=== PATIENT | female | born 1950 | race Caucasian/White ===

== ENCOUNTER 2019-09-14 14:28 | Inpatient (IN) | payer OTHER ==
[2019-09-14] VITALS (12 sets, daily range): BP systolic 95–122; BP diastolic 28–71
[~2019-09-14] VITALS: Ht 157.5 cm; Wt 100.6 kg
[2019-09-14 14:55] LABS: ABSOLUTE NEUTROPHILS 5.7 thou/uL (1.4-8.2); BASOPHILS 0.6 % (0.0-2.0); EOSINOPHILS 3.1 % (0.0-3.0); HEMATOCRIT 48.9 % (37.0-47.0); HEMOGLOBIN 16.1 gm/dL (12.0-15.0); LYMPHOCYTES 19.7 % (24.0-44.0); MCH 31.2 pg (26.0-34.0); MCHC 32.9 g/dL (28.0-37.0); MONOCYTES 7.3 % (1.0-8.0); PLATELET COUNT 237 thou/uL (150-400); POLYS 69.3 % (36.0-66.0); RBC 5.15 mil/uL (4.20-5.00); RDW 13.8 % (10.5-14.5); WBC 8.2 thou/uL (4.0-11.0)
[2019-09-14 14:56] LABS: ANION GAP 9 mmol/L (7-16); BUN 37 mg/dL (7-18); CALCIUM 10.5 mg/dL (8.5-10.1); CHLORIDE 99 mmol/L (98-107); CO2 25 mmol/L (21-32); CREATININE 1.7 mg/dL (0.6-1.0); GLUCOSE 236 mg/dL (74-106); POTASSIUM 4.6 mmol/L (3.5-5.1); SODIUM 133 mmol/L (136-145)
[2019-09-14 15:06] LABS: LIPASE 63 U/L (73-393); SGOT 46 U/L (15-37); SGPT 40 U/L (30-65); TOTAL BILIRUBIN 0.4 mg/dL (<0.1-1.0); TOTAL PROTEIN 7.4 g/dL (6.4-8.2); TROPONIN-I <0.06 ng/mL (<0.06)
[2019-09-14 18:31] LABS: URINE BILIRUBIN 1+ (Negative); URINE BLOOD NEGATIVE (Negative); URINE CLARITY CLEAR; URINE COLOR YELLOW; URINE GLUCOSE-RANDOM* NEGATIVE (Negative); URINE KETONES TRACE (Negative); URINE LEUKOCYTES-REFLEX NEGATIVE (Negative); URINE NITRITE-REFLEX NEGATIVE (Negative); URINE PROTEIN (DIPSTICK) TRACE (Negative)
[2019-09-14 18:33] LABS: ICTOTEST (BILI CONFIRMATORY) Negative (Negative)
--- NOTE | 2019-09-14 19:05 | NUR ---
UPDATED SISTER IN [place] SHE STATED SHE WOULD CALL SAM PT'[facility] AND UPDATE HIM. SISTER DENIED NEEDS OR QUESTIONS AFTER THIS RN EXPLAINED SITUATION ABOUT PT TO HER.
--- NOTE | 2019-09-14 20:47 | NUR ---
2015: Pt admitted to ICU room 247 for syncope, hypotension, bradycardia. Monitor sinus rhythm, pt on dopamine gtt at 10 mcg/kg/min, MAP 50's, SBP > 90. Pt somewhat difficult to arouse, need to call name and touch shoulder to wake her up. Follows simple commands, pupils 4 NIHARIKA, sluggish. Walllet with ayala and credit cards placed in sealed patient valuables envelope and sent to security vault. Glasses, cell phone, purse, and cane left at bedside. Pt O2 sat on room air 88-89%, placed on 2 L nasal canula.
[2019-09-14] MEDS ORDERED: OXYCODONE HCL10 MG PO (22:08)
[2019-09-14] MEDS ORDERED: PERCOCET 10-321 EAC1 PO (22:11)
[2019-09-14] MEDS ORDERED: GABAPENTIN600 M1 PO (22:11)
[2019-09-14] MEDS ORDERED: LEVO-T25 MCG PO (22:13)
[2019-09-14] MEDS ORDERED: WELLBUTRIN 75 M75 M1 PO (22:15)
[2019-09-14] MEDS ORDERED: OXYBUTYNIN 5 MG5 M2 PO (22:20)
[2019-09-14] MEDS ORDERED: REQUIP5 MG PO (22:22)
[2019-09-14] MEDS ORDERED: FLEXERIL PO (22:25)
[2019-09-14] MEDS ORDERED: VICTOZA0.6 MG/0.1 SUBQ (22:29)
[2019-09-14] MEDS ORDERED: LANTUS SUBQ (22:30)
[2019-09-14] MEDS ORDERED: CLONAZEPAM 0.50.5 M1 PO (22:31)
[2019-09-14] MEDS ORDERED: DESYREL150 MG PO (22:35)
[2019-09-14] MEDS ORDERED: CYMBALTA20 MG PO (22:37)
[2019-09-14] MEDS ORDERED: CALCIUM500 MG PO (22:42)
[2019-09-15] VITALS (40 sets, daily range): BP systolic 63–135; BP diastolic 24–87
--- NOTE | 2019-09-15 03:48 | NUR ---
Jolly cath inserted for urinary retention and accurate I&O at 0315. Mild difficulty with insertion due to pt anatomy.
[2019-09-15 05:52] LABS: ANION GAP 11 mmol/L (7-16); BUN 45 mg/dL (7-18); CHLORIDE 102 mmol/L (98-107); CO2 22 mmol/L (21-32); CREATININE 1.9 mg/dL (0.6-1.0); GLUCOSE 161 mg/dL (74-106); POTASSIUM 4.3 mmol/L (3.5-5.1); SODIUM 135 mmol/L (136-145)
[2019-09-15 06:01] LABS: MAGNESIUM 1.7 mg/dL (1.8-2.4); TROPONIN-I <0.06 ng/mL (<0.06)
[2019-09-15 06:04] LABS: HEMATOCRIT 47.7 % (37.0-47.0); MCH 30.6 pg (26.0-34.0); MCHC 31.5 g/dL (28.0-37.0); MCV 97.2 fL (80.0-100.0); RBC 4.9 mil/uL (4.20-5.00); RDW 13.7 % (10.5-14.5); WBC 12.1 thou/uL (4.0-11.0)
--- NOTE | 2019-09-15 09:18 | 2DMMODE ---
[facility] [address] [place] [address] 2 D/M-MODE ECHOCARDIOGRAM Name: ELDER PABON [facility] Room #: 247-P ADM IN M.R.#: [id number] Admission: 09/14/19 Attend Phys: Chris Dumont MD Discharge: Date of : 48 Report #: [id number] THIS REPORT FOR: cc: FAM - No family physician/PCP FAM - No family physician/PCP Ricky Lubin MD ~ APPROVED REPORT Study performed: 09/15/2019 08:15:00 EXAM: Comprehensive 2D, Doppler, and color-flow Echocardiogram Patient Location: ICU Room #: 247 Status: routine BSA: 1.91 HR: 93 bpm BP: 100/37 mmHg Rhythm: NSR Other Information Study Quality: Adequate Indications Syncope, hypotension. Hx: HTN. 2D Dimensions RVDd: 35.89 mm IVSd: 12.28 (7-11mm) LVOT Diam: 20.27 (18-24mm) LVDd: 42.44 mm PWd: 12.00 (7-11mm) LVDs: 21.04 (25-40mm) Aortic Root: 29.72 mm Volumes Left Atrial Volume (Systole) Single Plane 4CH: 31.17 mL Single Plane 2CH: 32.35 mL LA ESV Index: 18.00 mL/m2 Aortic Valve AoV Peak Arsh.: 1.95 m/s AO Peak Gr.: 15.18 mmHg LVOT Max P.45 mmHg LVOT Max V: 1.45 m/s IGNACIO Vmax: 2.41 cm2 [facility] [address] [place] [address] 2 D/M-MODE ECHOCARDIOGRAM Name: ELDER PABON [facility] Room #: 247-P ADM IN M.R.#: [id number] Admission: 09/14/19 Attend Phys: Chris Dumont MD Discharge: Date of : 48 Report #: [id number] Mitral Valve E/A Ratio: 0.8 MV Decel. Time: 262.65 ms MV E Max Arsh.: 0.89 m/s MV A Arsh.: 1.18 m/s MV PHT: 76.17 ms IVRT: 62.28 ms Pulmonary Vein P Vein S: 0.42 m/s P Vein A: 0.33 m/s P Vein D: 0.45 m/s P Vein A Dur.: 79.6 msec P Vein S/D Ratio: 0.93 Tricuspid Valve TR Peak Arsh.: 2.24 m/s RAP Estimate: 5.00 mmHg TR Peak Gr.: 20.10 mmHg PA Pressure: 25.00 mmHg Left Ventricle The left ventricle is normal size. There is normal LV segmental wall motion. Mild concentric left ventricular hypertrophy. Left ventricular systolic function is hyperdynamic. LVEF is 65-70%. Mild diastolic dysfunction is present (impaired relaxation pattern). Right Ventricle The right ventricle is normal size. The right ventricular systolic function is normal. Atria The left atrium size is normal. The right atrium size is normal. Aortic Valve The Aortic valve is mildly sclerotic. No aortic regurgitation is present. There is no aortic valvular stenosis. Mitral Valve The mitral valve is normal in structure. Moderate mitral annular calcification. There is no mitral valve regurgitation noted. No evidence of mitral valve stenosis. Tricuspid Valve The tricuspid valve is normal in structure. Trace tricuspid regurgitation. Estimated PAP is 25mmHg. [facility] [address] [place] [address] 2 D/M-MODE ECHOCARDIOGRAM Name: PEPPERELDER SANDOVAL Room #: 247-P [facility] IN M.R.#: [id number] Admission: 09/14/19 Attend Phys: Chris Dumont MD Discharge: Date of : 48 Report #: [id number] Pulmonic Valve Pulmonic valve is not well visualized. Great Vessels The aortic root is normal in size. Ascending aorta is not well visualized. IVC is normal in size and collapses >50% with inspiration. Pericardium There is no pericardial effusion. <Conclusion> The left ventricle is normal size. LVEF is 65-70%. The Aortic valve is mildly sclerotic. The mitral valve is normal in structure. Moderate mitral annular calcification. The tricuspid valve is normal in structure. Trace tricuspid regurgitation. Estimated PAP is 25mmHg. Pulmonic valve is not well visualized. There is no pericardial effusion. <ELECTRONICALLY SIGNED> By: Ricky Lubin MD 09/15/19916 6 6 Ricky Lubin MD /INF
--- NOTE | 2019-09-15 11:43 | NUR ---
DROWSY BUT EASILY AROUSABLE. HYPOTENSIVE ON DOPAMINE AND STARTED ON LEVO FOR BP SUPPORT. TOLERATED DIET W/O NAUSEA BUT C/O ABDOMINAL TENDERNESS. WILL CONTINUE WITH POC AND TITRATE GTTS TOLERATED.
--- NOTE | 2019-09-15 11:46 | NUR ---
chart review, visited with pt at beside. intro to cm, dcp, and transition of care ie: hh and skilled rehab. pt is a & o x person, place and time. she was here visited her on another floor when she had syncope episode. colin reported " live in house with , 3 steps to enter home. 20 + steps to basement to do laundry, have stair lift or i would not be able to do that. independent. have cane and walker with seat. manage own medication. stand to shower. no home oxygen. drive vehicle. pcp dr vandana nunez with [facility]. no hh and rehab was in [place]. no other support, maybe neighbor few doors down if needed"/colin. education on hh and skilled rehab " ok"/colin. will cont following as needed for dc needs.
--- NOTE | 2019-09-15 20:58 | NUR ---
VASCULAR ACCESS CONSULTED FOR PICC LINE DISCUSSED PICC VS CENTRAL LINE WITH PT, PT UNABLE TO LAY FLAT FOR INSERTION. ALSO DISCUSSED BENEFITS AND RISKS OF PICC LINE, PT VERBALIZED UNDERSTANDING. PT'S LABS,MEDSS,HISTORY, ORDER AND CONSENT VERIFIED. MITESH SOLORIO IS WIDELY PATENT WITH USG. 5FR TL POWER PICC TRIMMED TO 43CM INSERTED TO 1CM EXTERNAL. STAT CXR ORDERED . PT TOLERATED WELL
--- NOTE | 2019-09-15 21:27 | NUR ---
CXR INCONCLUSIVE SO PICC WITHDRAWN 2 CM FOR TOTAL OF 3 CM EXTERNAL. STAT CXR ORDERED.
--- NOTE | 2019-09-15 21:55 | NUR ---
cxr confirmed placement, PICC RELEASED FOR IMMEDIATE USE PER PROTCOL TO KAYLAN GALICIA
[2019-09-16] VITALS (28 sets, daily range): BP systolic 107–171; BP diastolic 41–98
[2019-09-16 03:56] LABS: CALCIUM 6.6 mg/dL (8.5-10.1); CREATININE 1.2 mg/dL (0.6-1.0); POTASSIUM 3.3 mmol/L (3.5-5.1)
--- NOTE | 2019-09-16 08:00 | NUR ---
Assumed care at 0700. PT appeared anxious and stated she was worried about her and her cats. Her is admitted to . Nurse obtained his room phone number however the phone in the PT's room had no dial tone. Maintenance was contacted and a new phone don was placed. PT was able to get a hold of her who stated he would be discharged today and able to take care of their cats. High fall risk precautions in place. [facility]
--- NOTE | 2019-09-16 09:09 | EKG ---
[facility] [place] [address] ELECTROCARDIOGRAM REPORT Name: ELDER PABON Room #: [facility]- ADM IN M.R.#: [id number] Admission: 09/14/19 Attend Phys: Chris Dumont MD Discharge: Date of : 48 Report #: [id number] THIS REPORT FOR: cc: POOJA - No family physician/PCP POOJA - No family physician/PCP Jonathan Barillas MD [facility] THIS REPORT FOR: //name// 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 : 1950 Requested By: Good Aguirre Order Number: [id number] MD: Jonathan Barillas Measurements Intervals [place] Rate: 61 P: 46 CA: 147 QRS: -59 QRSD: 103 T: 22 QT: 416 QTc: 419 Interpretive Statements Sinus rhythm Leftward axis Poor R wave progression No previous ECG available for comparison Electronically Signed On 09-16-2019 9:08:48 BELL STAFF by Jonathan Barillas [email or web address] <ELECTRONICALLY SIGNED> By: Jonathan Barillas MD, [facility] 09/16/19 0908 1445 1445 Jonathan Barillas MD, [facility] /EPI
--- NOTE | 2019-09-16 09:19 | EKG ---
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: [facility] : 1950 Requested By: Good Aguirre Order Number: [id number] MD: Jonathan Bairllas Measurements Intervals [place] Rate: 54 P: 68 KS: 156 QRS: 6 QRSD: 114 T: 31 QT: 481 QTc: 456 Interpretive Statements Sinus rhythm Probable anteroseptal infarct, old No previous ECG available for comparison Electronically Signed On 09-16-2019 9:17:59 MANAGER CHINESE by Jonathan Barillas [email or web address] <ELECTRONICALLY SIGNED> By: Jonathan Barillas MD, FAC 09/16/19 0917 1707 170 Jonathan Barillas MD, [facility] /EPI
--- NOTE | 2019-09-16 09:28 | EKG ---
[facility] [place] [address] ELECTROCARDIOGRAM REPORT Name: ELDER PABON Room #: 247- ADM IN M.R.#: [id number] Admission: 09/14/19 Attend Phys: Chris Dumont MD Discharge: Date of : 48 Report #: [id number] THIS REPORT FOR: cc: POOJA - Radha family physician/PCP POOJA - Radha family physician/PCP Jonathan Barillas MD [facility] THIS REPORT FOR: //name// [facility] Test Date: 2019-09-15 Test Time: 07:21:47 Pat Name: ELDER PABON Department: Room: [facility] Gender: F 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 : 1950 Requested By: Chris Dumont Order Number: [id number] MD: Jonathan Barillas Measurements Intervals [place] Rate: 97 P: 68 AR: 117 QRS: 126 QRSD: 101 T: 18 QT: 313 QTc: 398 Interpretive Statements Sinus rhythm Borderline short AR interval Low voltage, precordial leads Poor R wave progression No previous ECG available for comparison Electronically Signed On 09-16-2019 9:27:41 ADJUTANT GENERAL by Jonathan Barillas [email or web address] <ELECTRONICALLY SIGNED> By: Jonathan Barillas MD, [facility] 09/16/19 0927 0 0 Jonathan Barillas MD, [facility] /EPI
--- NOTE | 2019-09-16 09:30 | NUR ---
PT requested to use the toilet. She ambulated with minimum ast. Fall precautions in place. Pt had a small BM however there was bright red blood noted when performing pericare. Nurse also noted scant amount of bright red blood in the toilet bowl. Nurse assessed the outside of the rectum and could not identify any hemmorhoids. Dr. Dumont was on unit and notified. He placed an order to consult GI. Their answering service was notified. Nurse will continue to monitor.
[2019-09-16 10:58] LABS: CREATININE 1.4 mg/dL (0.6-1.0)
[2019-09-16 10:59] LABS: CALCIUM 8.9 mg/dL (8.5-10.1); POTASSIUM 4.5 mmol/L (3.5-5.1)
[2019-09-16 11:27] LABS: HEMATOCRIT 36.6 % (37.0-47.0); MCH 31.3 pg (26.0-34.0); MCHC 32.9 g/dL (28.0-37.0); MCV 95.2 fL (80.0-100.0); RBC 3.85 mil/uL (4.20-5.00); RDW 14.2 % (10.5-14.5)
--- NOTE | 2019-09-16 16:31 | EKG ---
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
[2019-09-17] VITALS (10 sets, daily range): BP systolic 87–171; BP diastolic 48–86
--- NOTE | 2019-09-17 06:44 | NUR ---
Pt up to BSC x1 during the night. No stool. Pt c/o of migraine early in shift. Nurse practioner notified and pt's home medication for migraines started. Pt also c/o of abdominal pain. Abdomen remains soft, tender to palpation. Pt given Toradol IV earlier in shift for abdominal pain without much relief. No nausea at this time.
--- NOTE | 2019-09-17 15:43 | NUR ---
PT SITTING IN CHAIR MAJORITY OF THE DAY. HAS HAD 3 BOWEL MOVEMENTS WITHOUT S/S OF BLEEDING. CONTINUES TO COMPLAIN OF ABDOMINAL PAIN. ABDOMEN IS SOFT/SYMETRICAL AND NON TENDER TO PALPATION. PT HAS HAD FOOD AVOIDANCE. GI UPDATED. CC/TELE ORDERS. PT EDUCATED THROUGHT DAY. PROGRESSING TOWARDS PLAN OF CARE, EVIDANCE OF MULTIPLE BOWEL MOVEMENTS. WILL CONTINUE TO MONITOR.
[2019-09-18] VITALS (7 sets, daily range): BP systolic 133–151; BP diastolic 60–556
[2019-09-18] MEDS ORDERED: COZAAR 25 MG TA25 M2 PO (02:52)
[2019-09-18 03:12] LABS: ABSOLUTE NEUTROPHILS 4.4 thou/uL (1.4-8.2); BASOPHILS 0.1 % (0.0-2.0); EOSINOPHILS 3.2 % (0.0-3.0); HEMATOCRIT 33.5 % (37.0-47.0); LYMPHOCYTES 13.2 % (24.0-44.0); MCH 31.1 pg (26.0-34.0); MCHC 32.9 g/dL (28.0-37.0); MCV 94.3 fL (80.0-100.0); MONOCYTES 11.5 % (1.0-8.0); PLATELET COUNT 134 thou/uL (150-400); RBC 3.56 mil/uL (4.20-5.00); RDW 14.2 % (10.5-14.5); WBC 6.1 thou/uL (4.0-11.0)
[2019-09-18 03:19] LABS: ALBUMIN 2.1 g/dL (3.4-5.0); CALCIUM 9.5 mg/dL (8.5-10.1); MAGNESIUM 1.2 mg/dL (1.8-2.4); POTASSIUM 4.4 mmol/L (3.5-5.1); TOTAL BILIRUBIN 0.5 mg/dL (<0.1-1.0); TOTAL PROTEIN 5.2 g/dL (6.4-8.2)
--- NOTE | 2019-09-18 06:40 | NUR ---
AT APPROX 0228 PT WENT INTO AFIB FOR 10 MIN. GOT EKG, VITALS, LABS, AND BS. PT WENT BACK TO SR IN THE 90'S. LAB SHOWED MAG 1.2, REPLACED WITH 4 MG IV. WILL CONTINUE TO MONITOR.
--- NOTE | 2019-09-18 13:15 | EKG ---
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 : 1950 Requested By: Michelle Blanco Order Number: [id number] MD: Jeff Engel Measurements Intervals [place] Rate: 166 P: [place]: QRS: 96 QRSD: 87 T: -68 QT: 243 QTc: 404 Interpretive Statements Atrial fibrillation with rapid V-rate Ventricular premature complex Right axis deviation Low voltage, extremity leads Anteroseptal infarct, old Repolarization abnormality, prob rate related Compared to ECG 09/16/2019 07:21:29 Ventricular premature complex(es) now present Right-axis deviation now present Early repolarization now present Sinus rhythm no longer present Myocardial infarct finding still present Electronically Signed On 09-18-2019 13:14:26 BLENDER/BRAZE APPLICATOR by Jeff Engel [email or web address] <ELECTRONICALLY SIGNED> By: Jeff Engel MD 09/18/19 1314 5 5 Jeff Engel MD /EPI
--- NOTE | 2019-09-18 15:38 | NUR ---
Assumed care approx. 0700 this AM. Pt ALOx4. Pt titrated off of 2LNC this morning. Pt O2 sats 95-100%. No runs of afib noted thus far. Pt SR on the monitor. Pt complained earlier in the shift of anxiousness and that she felt like a panic attack was coming. Dr. Dumont notified that the patients home meds for anxiety hadn't been restarted and that she was requesting to recieve them. Pt recieved dose of klonopin and has been more calm. Dr. Friend called per request of Dr. Dumont due to patient's run afib overnight. Dr. Friend added aspirin and PO metoprolol to patient's care then said cardiology will see him tomorrow. Pt still complaining of stomach pain when eating. Jolly discontinued per orders. Magnesium replaced per electrolyte protocol. Will continue to monitor. Pt slightly and slowly progressing toward plan of care goals.
[2019-09-19 04:29] VITALS: BP 125/62
--- NOTE | 2019-09-19 06:05 | NUR ---
PT HAS BEEN NPO SINCE 2400 SHE IS SCHEDULED FOR A EGD TODAY. PT UP TO BATHROOM WITH STANDBY ASSIST. PT STATES HER BM'S ARE BOTH LOOSE AND SOFT. OVERNIGHT NO ISSUES WITH PAFIB. PT SLEPT MOST OF NIGHT AFTER RESTARTING HER ANXIETY MEDICATIONS. MAGNESIUM REDRAW AT 2230 RESULTED IN 1.2. CALLED [employer] AND INSTRUCTED TO FOLLOW PROTOCOL AND PO MAG GIVEN. WILL CONTINUE TO MONITOR.
[2019-09-19 06:48] LABS: HEMATOCRIT 30.1 % (37.0-47.0); HEMOGLOBIN 10.1 gm/dL (12.0-15.0); MCH 31.7 pg (26.0-34.0); MCHC 33.5 g/dL (28.0-37.0); MCV 94.5 fL (80.0-100.0); RBC 3.19 mil/uL (4.20-5.00); RDW 14.3 % (10.5-14.5); WBC 5.8 thou/uL (4.0-11.0)
[2019-09-19 07:03] LABS: CALCIUM 9.3 mg/dL (8.5-10.1); CREATININE 0.9 mg/dL (0.6-1.0); MAGNESIUM 1.1 mg/dL (1.8-2.4); POTASSIUM 3.9 mmol/L (3.5-5.1)
[2019-09-19 07:40] VITALS: BP 133/54
[2019-09-19 11:59] VITALS: BP 137/57
--- NOTE | 2019-09-19 12:34 | NUR ---
SW reviewed chart and spoke with nursing and attending physician. Pt was transferred to 3 from ICU and is slowly progressing towards goals for discharge. Pt to have EGD today. Plan is for pt to discharge home when medically stable. SW is following to assist as needed with discharge planning.
[2019-09-19 17:00] VITALS: BP 131/61
[2019-09-19 19:21] VITALS: BP 140/61
[2019-09-20 04:36] VITALS: BP 140/64
--- NOTE | 2019-09-20 05:09 | NUR ---
Pt. given tylenol for pain per her request at shift change with some relief. She slept fair during the night. Up with assist x1 to BR. Scheduled anxiety med given with relief. Tolerating room air well with no respiratory distress. Bed alarm for safety. She calls appropriately for assistance. Making progress towards care plan goals.
[2019-09-20 06:30] LABS: HEMOGLOBIN 9.9 gm/dL (12.0-15.0); MCH 31.6 pg (26.0-34.0); MCHC 33.2 g/dL (28.0-37.0); MCV 95.1 fL (80.0-100.0); RBC 3.15 mil/uL (4.20-5.00); RDW 14.2 % (10.5-14.5); WBC 6.3 thou/uL (4.0-11.0)
[2019-09-20 06:45] LABS: CALCIUM 8.9 mg/dL (8.5-10.1); CREATININE 0.8 mg/dL (0.6-1.0); MAGNESIUM 1.5 mg/dL (1.8-2.4); POTASSIUM 3.7 mmol/L (3.5-5.1)
[2019-09-20 07:32] VITALS: BP 123/54
[2019-09-20] MEDS ORDERED: METOPROLOL SUCC50 MG PO (08:13)
[2019-09-20 11:02] VITALS: BP 123/54
[2019-09-20 11:33] VITALS: BP 116/50
[2019-09-20 12:29] VITALS: BP 123/54
--- NOTE | 2019-09-20 14:15 | NUR ---
PT DISCHARGED TO HOME WITH SPOUSE...RX SENT FOR METOPROLOL...WILL FOLLOW UP WITH GI FOR OUTPT COLONOSCOPY
--- NOTE | 2019-09-20 16:03 | NUR ---
DISCHARGE NOTE: SW reviewed chart and spoke with nursing and attending physician. Pt is medically stable for discharge home today. No discharge needs identified. Pt's family provided transportation home. No SW needs identified at this time, but is available to assist should needs arise.
== END 2019-09-20 14:26 | disposition home or self-care (01) | DRG 314 ==
LOC: ER 14:28 → EROBS 18:57 → ICU 18:57 → 3W 18:57 → ICU 20:15 → 3W 09-17 18:33 → ENTRNSPT 09-20 14:02 → EDTRNSPTSTS 09-20 14:04 → 3W 09-20 14:26
PROVIDERS: Internal Medicine; Physician Assistant; ADMIT Internal Medicine
PROC: 02HV33Z Insertion of Infusion Device into Superior Vena Cava, Percutaneous Approach (ICD-10-PCS; principal; 2019-09-14)
PROC: 0DJ08ZZ Inspection of Upper Intestinal Tract, Via Natural or Artificial Opening Endoscopic (ICD-10-PCS; 2019-09-19)
DX: I95.9 Hypotension, unspecified (principal); G92 Toxic encephalopathy; N17.9 Acute kidney failure, unspecified; K92.1 Melena; Z68.41 Body mass index [BMI] 40.0-44.9, adult; F11.20 Opioid dependence, uncomplicated; I48.0 Paroxysmal atrial fibrillation; K59.00 Constipation, unspecified; R19.7 Diarrhea, unspecified; E66.01 Morbid (severe) obesity due to excess calories; E03.9 Hypothyroidism, unspecified; F41.9 Anxiety disorder, unspecified; F32.9 Major depressive disorder, single episode, unspecified; E78.00 Pure hypercholesterolemia, unspecified; M54.9 Dorsalgia, unspecified; E78.5 Hyperlipidemia, unspecified; R00.1 Bradycardia, unspecified; E11.22 Type 2 diabetes mellitus with diabetic chronic kidney disease; I12.9 Hypertensive chronic kidney disease with stage 1 through stage 4 chronic kidney disease, or unspecified chronic kidney disease; K29.70 Gastritis, unspecified, without bleeding; N18.9 Chronic kidney disease, unspecified; G89.4 Chronic pain syndrome; K59.03 Drug induced constipation; T40.2X5A Adverse effect of other opioids, initial encounter; Y92.89 Other specified places as the place of occurrence of the external cause; Z79.899 Other long term (current) drug therapy; Z88.8 Allergy status to other drugs, medicaments and biological substances; Z91.040 Latex allergy status; Z79.01 Long term (current) use of anticoagulants
CPT/HCPCS: 10078; 10779; 10879; 27000; 62110; 62900; 70005